=== PATIENT | male | born 1970 | race Caucasian/White ===

== ENCOUNTER 2019-11-20 00:37 | Inpatient (IN) | payer MEDICAID ==
[~2019-11-20] VITALS: Ht 160 cm; Wt 61.9 kg
[~2019-11-20 00:37] MED LIST: FORTAMET500 M1; GLIPIZIDE XL5 M2 PO
[2019-11-20 00:43] VITALS: Ht 160 cm; Wt 61.9 kg
[2019-11-20 01:28] LABS: BASOPHIL % 0.7 % (0-2); RED CELL DISTRIBUTION WIDTH 12.6 % (11.5-14.5)
[2019-11-20 01:37] LABS: PLATELET COUNT 558 x10^3mcL (130-400)
[2019-11-20 03:00] LABS: CALCIUM 8.9 mg/dL (8.5-10.1); CARBON DIOXIDE 30.5 mmol/L (21-32); CHLORIDE SERUM 96 mmol/L (98-107); CREATININE SERUM 0.8 mg/dL (0.7-1.3); GFR1 > 60 mL/min; GLUCOSE SERUM 194 mg/dL (74-106); POTASSIUM SERUM 3.7 mmol/L (3.5-5.1); SODIUM SERUM 131 mmol/L (136-145)
[2019-11-20 03:05] LABS: ALKALINE PHOSPHATASE 68 U/L (46-116); ALT/SGPT 17 U/L (16-63); AST/SGOT 15 U/L (15-37); BILIRUBIN TOTAL 0.41 mg/dL (0.20-1.00); LIPASE 71 IU/L (73-393); TOTAL PROTEIN, SERUM 7.2 g/dL (6.4-8.2)
[2019-11-20 03:06] LABS: ALBUMIN 2.5 g/dL (3.4-5.0)
[2019-11-20 05:37] VITALS: BP 111/69
[2019-11-20 07:41] LABS: microscopic required? NO
[2019-11-20 07:48] VITALS: BP 108/70
[2019-11-20 07:59] VITALS: BP 124/76
[2019-11-20 09:28] LABS: UA SPECIFIC GRAVITY <=1.005 (1.005-1.035); urine erythrocyte NEGATIVE (NEGATIVE)
[2019-11-20 11:43] VITALS: BP 109/71
[2019-11-20 16:59] VITALS: BP 105/71
[2019-11-20 19:41] VITALS: BP 110/77
[2019-11-21 05:03] VITALS: BP 108/73
[2019-11-21 06:36] LABS: CALCIUM 8.4 mg/dL (8.5-10.1); CARBON DIOXIDE 29.4 mmol/L (21-32); CHLORIDE SERUM 101 mmol/L (98-107); CREATININE SERUM 0.7 mg/dL (0.7-1.3); GFR1 > 60 mL/min; GLUCOSE SERUM 141 mg/dL (74-106); POTASSIUM SERUM 3.9 mmol/L (3.5-5.1); SODIUM SERUM 136 mmol/L (136-145)
[2019-11-21 06:39] LABS: BASOPHIL % 0.7 % (0-2); RED CELL DISTRIBUTION WIDTH 12.8 % (11.5-14.5)
[2019-11-21 08:00] VITALS: BP 111/74
[2019-11-21 08:10] LABS: PLATELET COUNT 509 x10^3mcL (130-400)
[2019-11-21] MEDS ORDERED: ULT50 PO ×2 (11:59→20:17)
[2019-11-21 14:01] VITALS: BP 111/74
[2019-11-21 14:35] LABS: APPEARANCE FLUID SLIGHTLY CLOUDY; COLOR FLUID LIGHT YELLOW; RBC FLUID 89 /cumm; SOURCE FLUID ACITIES; WBC FLUID 148 /cumm
[2019-11-21 14:36] LABS: LYMPHOCYTE FLUID 32 %; MONOCYTE FLUID 26 %
[2019-11-21 18:25] VITALS: BP 108/68
[2019-11-21] MEDS ORDERED: ULTRAM50 MG PO (20:19)
== END 2019-11-21 20:09 | disposition home or self-care (01) | DRG 240 ==
LOC: ED 00:37 → MU 04:52
PROVIDERS: ADMIT Family Medicine
PROC: 0W9G3ZZ Drainage of Peritoneal Cavity, Percutaneous Approach (ICD-10-PCS; principal; 2019-11-21)
DX: C16.2 Malignant neoplasm of body of stomach (principal); E43 Unspecified severe protein-calorie malnutrition; R18.0 Malignant ascites; K56.690 Other partial intestinal obstruction; C78.6 Secondary malignant neoplasm of retroperitoneum and peritoneum; E11.65 Type 2 diabetes mellitus with hyperglycemia; Z68.22 Body mass index [BMI] 22.0-22.9, adult; Z87.891 Personal history of nicotine dependence; Z79.84 Long term (current) use of oral hypoglycemic drugs
CPT/HCPCS: 49083; 82962; 87116; 87206; C1729; G0378; J2270; J2405; J7030; Q0092; Q9967

== ENCOUNTER 2019-11-26 07:47 | Emergency (ER) | payer MEDICAID ==
[~2019-11-26] VITALS: Ht 170.2 cm; Wt 61.4 kg
[~2019-11-26 07:47] MED LIST changes: +ULT50 PO; +ULTRAM50 MG PO
[2019-11-26 07:53] VITALS: Ht 170.2 cm; Wt 61.4 kg
[2019-11-26 09:15] LABS: BASOPHIL % 0.5 % (0-2)
[2019-11-26 09:19] LABS: RED CELL DISTRIBUTION WIDTH 13.1 % (11.5-14.5)
[2019-11-26 09:24] LABS: PLATELET COUNT 571 x10^3mcL (130-400)
[2019-11-26 09:31] LABS: CALCIUM 8.4 mg/dL (8.5-10.1); CARBON DIOXIDE 29.2 mmol/L (21-32); CHLORIDE SERUM 96 mmol/L (98-107); CREATININE SERUM 0.7 mg/dL (0.7-1.3); GFR1 > 60 mL/min; GLUCOSE SERUM 164 mg/dL (74-106); POTASSIUM SERUM 4.3 mmol/L (3.5-5.1); SODIUM SERUM 131 mmol/L (136-145)
[2019-11-26 09:35] LABS: ALKALINE PHOSPHATASE 65 U/L (46-116); ALT/SGPT 13 U/L (16-63); AST/SGOT 14 U/L (15-37); CHOLESTEROL 123 mg/dL (<200); CHOLESTEROL/HDL RATIO 2.9; HDL CHOLESTEROL 43 mg/dL (40-60); LIPASE 49 IU/L (73-393); TOTAL PROTEIN, SERUM 6.4 g/dL (6.4-8.2); TRIGLYCERIDES 93 mg/dL (<150)
[2019-11-26 10:49] LABS: microscopic required? YES; urine erythrocyte NEGATIVE (NEGATIVE)
[2019-11-26 11:53] VITALS: BP 112/78
== END 2019-11-26 12:05 | disposition home or self-care (01) ==
LOC: ED 07:47
PROVIDERS: Specialist
DX: R18.8 Other ascites (principal); G89.29 Other chronic pain; R10.9 Unspecified abdominal pain; R14.0 Abdominal distension (gaseous); E11.9 Type 2 diabetes mellitus without complications; Z85.028 Personal history of other malignant neoplasm of stomach
CPT/HCPCS: 82962; 83880; J2270; J2405; Q0092